=== PATIENT | female | born 1975 | race Hispanic/Latino ===

== ENCOUNTER 2020-10-03 13:48 | Observation (INO) | payer BC, OTHER ==
[~2020-10-03] VITALS: Ht 157.5 cm; Wt 78.9 kg
[~2020-10-03 13:48] MED LIST: B-12; IRON INFUSION
[2020-10-03] MEDS ORDERED: ASPIRIN 81 MG CHEW TAB PO ONE (14:15)
[2020-10-03 14:35] LABS: BASOPHILS # (AUTO) 0.1 (0.0-0.1); BASOPHILS % 0.6 % (0.0-1.0); EOSINOPHILS # (AUTO) 0.2 (0.0-0.4); EOSINOPHILS % 2.9 % (0.0-6.0); HEMATOCRIT 39.2 % (34.2-44.1); HEMOGLOBIN 12.9 g/dL (12.0-16.0); LYMPHOCYTES # (AUTO) 1.8 (1.0-3.2); LYMPHOCYTES % 22.1 % (18.0-39.1); MEAN CORPUSCULAR HEMOGLOBIN 30.4 pg (28-32); MEAN CORPUSCULAR HGB CONC 32.9 g/dL (31-35); MEAN CORPUSCULAR VOLUME 92.5 fL (81-99); MONOCYTES # (AUTO) 0.7 (0.2-0.8); MONOCYTES % 9.1 % (4.4-11.3); NEUTROPHILS # (AUTO) 5.2 (2.1-6.9); PLATELET COUNT 260 x10e3/uL (140-360); RED BLOOD COUNT 4.24 x10e6/uL (3.6-5.1); RED CELL DISTRIBUTION WIDTH 13.6 % (11.7-14.4)
[2020-10-03 14:45] LABS: AMPHETAMINES SCREEN,URINE NEGATIVE (NEGATIVE); BENZODIAZEPINES SCREEN,URINE NEGATIVE (NEGATIVE); PHENCYCLIDINE SCREEN,URINE NEGATIVE (NEGATIVE)
[2020-10-03 14:50] LABS: INR 0.87; PROTHROMBIN TIME 12.3 seconds (11.9-14.5)
[2020-10-03 14:51] LABS: PARTIAL THROMBOPLASTIN TIME 29.7 seconds (23.8-35.5)
[2020-10-03 15:09] LABS: ALANINE AMINOTRANSFERASE 15 IU/L (0-55); ALBUMIN/GLOBULIN RATIO 1.2 (0.8-2.0); ALKALINE PHOSPHATASE 80 IU/L (40-150); ANION GAP 15.5 mmol/L (8-16); BLOOD UREA NITROGEN 11 mg/dL (7-26); BUN/CREATININE RATIO 17 (6-25); CALCIUM 9.1 mg/dL (8.4-10.2); CARBON DIOXIDE 24 mmol/L (22-29); CHLORIDE 107 mmol/L (98-107); CREATINE KINASE 84 IU/L (29-168); CREATININE, SERUM 0.65 mg/dL (0.57-1.11); EST GLOMERULAR FILTRATION RATE > 60 ML/MIN (60-); GLUCOSE 65 mg/dL (74-118); POTASSIUM 3.5 mmol/L (3.5-5.1); SODIUM 143 mmol/L (136-145)
[2020-10-03 15:54] LABS: THYROID STIMULATING HORMONE 1.746 uIU/mL (0.350-4.940)
[2020-10-03] MEDS ORDERED: ONDANSETRON HCL INJ 2MG/ML 2ML 2 MG/ML VIAL IV PRN (16:30)
[2020-10-03] MEDS ORDERED: SODIUM CHLORIDE 0.9% 1000ML 1,000 ML IV SCH (16:30)
[2020-10-03] MEDS ORDERED: LORAZEPAM INJ 2 MG/ML VIAL IV NR (16:45)
[2020-10-03] MEDS ORDERED: ESTRADIOL1 MG PO (16:59)
[2020-10-03 19:28] VITALS: BP 117/79
[2020-10-03] MEDS ORDERED: LINZESS290 MCG PO (19:49)
[2020-10-03 20:00] VITALS: BP_SYST 108; BP_SYST 117; BP_DIAS 78; BP_DIAS 79
[2020-10-04] VITALS: BP 105/67
[2020-10-04 02:18] LABS: CREATINE KINASE 58 IU/L (29-168)
[2020-10-04 04:00] VITALS: BP 98/66
[2020-10-04 08:30] VITALS: BP 98/66
[2020-10-04] MEDS ORDERED: ASPIRIN 81 MG ENTERIC COATED PO SCH (09:00)
[2020-10-04 09:18] VITALS: BP 113/73
[2020-10-04 11:11] LABS: BASOPHILS # (AUTO) 0.1 (0.0-0.1); BASOPHILS % 0.8 % (0.0-1.0); EOSINOPHILS # (AUTO) 0.3 (0.0-0.4); HEMOGLOBIN 12.5 g/dL (12.0-16.0); LYMPHOCYTES # (AUTO) 1.6 (1.0-3.2); MEAN CORPUSCULAR HEMOGLOBIN 30.2 pg (28-32); MEAN CORPUSCULAR HGB CONC 32.1 g/dL (31-35); MEAN CORPUSCULAR VOLUME 94.2 fL (81-99); MONOCYTES # (AUTO) 0.6 (0.2-0.8); MONOCYTES % 9.7 % (4.4-11.3); NEUTROPHILS # (AUTO) 3.5 (2.1-6.9); NEUTROPHILS % 58.3 % (38.7-80.0); PLATELET COUNT 255 x10e3/uL (140-360); RED BLOOD COUNT 4.14 x10e6/uL (3.6-5.1); RED CELL DISTRIBUTION WIDTH 13.7 % (11.7-14.4)
[2020-10-04 11:34] LABS: ALANINE AMINOTRANSFERASE 16 IU/L (0-55); ALBUMIN 3.7 g/dL (3.5-5.0); ALBUMIN/GLOBULIN RATIO 1.2 (0.8-2.0); ALKALINE PHOSPHATASE 74 IU/L (40-150); ANION GAP 11.5 mmol/L (8-16); BLOOD UREA NITROGEN 8 mg/dL (7-26); BUN/CREATININE RATIO 13 (6-25); CALCIUM 8.8 mg/dL (8.4-10.2); CARBON DIOXIDE 26 mmol/L (22-29); CHLORIDE 108 mmol/L (98-107); CREATININE, SERUM 0.61 mg/dL (0.57-1.11); EST GLOMERULAR FILTRATION RATE > 60 ML/MIN (60-); GLUCOSE 78 mg/dL (74-118); POTASSIUM 3.5 mmol/L (3.5-5.1); SODIUM 142 mmol/L (136-145)
[2020-10-04 11:50] LABS: CREATINE KINASE 63 IU/L (29-168)
[2020-10-04 11:54] VITALS: BP 129/76
[2020-10-04] MEDS ORDERED: ASPIRIN EC81 MG PO (14:40)
[2020-10-04] MEDS ORDERED: ESTRADIOL 1 MG TAB PO SCH (17:00)
[2020-10-05] MEDS ORDERED: LINACLOTIDE 145 MCG CAPSULE PO SCH (09:00)
== END 2020-10-04 15:25 | disposition home or self-care (01) ==
LOC: ER 13:57 → ERHOLD 16:25 → MED/SURG 18:20
PROVIDERS: ADMIT Internal Medicine; ATTEND Internal Medicine
DX: R20.2 Paresthesia of skin (principal); Z88.8 Allergy status to other drugs, medicaments and biological substances; Z86.19 Personal history of other infectious and parasitic diseases; Z98.84 Bariatric surgery status; Z80.8 Family history of malignant neoplasm of other organs or systems; Z83.3 Family history of diabetes mellitus; Z82.49 Family history of ischemic heart disease and other diseases of the circulatory system; Z78.0 Asymptomatic menopausal state; Z20.828 Contact with and (suspected) exposure to other viral communicable diseases
CPT/HCPCS: 36415 ×2; 70450; 70551; 80053 ×2; 80307; 82550 ×2; 82553 ×2; 83735; 84443; 84484 ×2; 85025 ×2; 85610; 85730; 93005; 93880; 99284; G0378 ×2; J2060; J7030; U0002

== ENCOUNTER → 2022-03-15 | Day surgery (SDC) | payer BC ==
[2022-03-14 10:48] LABS: BASOPHILS # (AUTO) 0.1 (0.0-0.1); BASOPHILS % 0.9 % (0.0-1.0); EOSINOPHILS # (AUTO) 0.3 (0.0-0.4); EOSINOPHILS % 4.4 % (0.0-6.0); HEMATOCRIT 42.3 % (34.2-44.1); LYMPHOCYTES # (AUTO) 1.7 (1.0-3.2); LYMPHOCYTES % 26.4 % (18.0-39.1); MEAN CORPUSCULAR HEMOGLOBIN 27.5 pg (28-32); MEAN CORPUSCULAR HGB CONC 30.7 g/dL (31-35); MEAN CORPUSCULAR VOLUME 89.4 fL (81-99); MONOCYTES # (AUTO) 0.5 (0.2-0.8); MONOCYTES % 7.6 % (4.4-11.3); NEUTROPHILS # (AUTO) 3.9 (2.1-6.9); NEUTROPHILS % 60.5 % (38.7-80.0); PLATELET COUNT 273 x10e3/uL (140-360); RED BLOOD COUNT 4.73 x10e6/uL (3.6-5.1)
[~2022-03-15] MED LIST changes: +ASPIRIN EC81 MG PO; +DYMISTA NASAL S23 GM INH; +ESTRADIOL1 MG PO; +FENTANYL CITRATE/PF 100MCG/2 ML INJ ONE; +LEVOCETIRIZINE D5 MG PO; +LINZESS290 MCG PO; +MIDAZOLAM HCL 2 MG/2 ML VIAL ONE; +PROPOFOL IV EMULSION 10 MG/ML 20 ML VIAL ONE; +VITAMIN B-121000 MC4 IM
[2022-03-15 11:20] VITALS: BP 109/72
== END | disposition home or self-care (01) ==
LOC: OR 09:15
PROVIDERS: ATTEND Internal Medicine Gastroenterology
DX: Z12.11 Encounter for screening for malignant neoplasm of colon (principal); K59.00 Constipation, unspecified; K58.9 Irritable bowel syndrome, unspecified; K64.8 Other hemorrhoids; G47.33 Obstructive sleep apnea (adult) (pediatric); D64.9 Anemia, unspecified; I49.3 Ventricular premature depolarization; J30.2 Other seasonal allergic rhinitis; I83.90 Asymptomatic varicose veins of unspecified lower extremity; Z88.6 Allergy status to analgesic agent; Z01.810 Encounter for preprocedural cardiovascular examination; Z01.812 Encounter for preprocedural laboratory examination; Z20.822 Contact with and (suspected) exposure to COVID-19; Z79.82 Long term (current) use of aspirin; Z68.34 Body mass index [BMI] 34.0-34.9, adult; Z86.73 Personal history of transient ischemic attack (TIA), and cerebral infarction without residual deficits; Z86.16 Personal history of COVID-19; Z87.19 Personal history of other diseases of the digestive system
CPT/HCPCS: 36415; 45378; 85025; 93005; J2250; J2704; J3010; U0002

== ENCOUNTER 2024-12-15 13:07 | Emergency (ER) | payer BC ==
[~2024-12-15] VITALS: Ht 157.5 cm; Wt 78.9 kg
[~2024-12-15 13:07] MED LIST changes: -FENTANYL CITRATE/PF 100MCG/2 ML INJ ONE; -MIDAZOLAM HCL 2 MG/2 ML VIAL ONE; -PROPOFOL IV EMULSION 10 MG/ML 20 ML VIAL ONE
[2024-12-15 13:17] VITALS: PULSE 88; RESP 17; TEMP 97.9; O2SAT 96
[2024-12-15] MEDS ORDERED: POLYMYXIN B-TMP10 ML OS (14:00)
== END 2024-12-15 14:49 | disposition home or self-care (01) ==
LOC: ER 13:28
DX: H57.12 Ocular pain, left eye (principal); H00.15 Chalazion left lower eyelid; R51.9 Headache, unspecified; Z98.84 Bariatric surgery status
CPT/HCPCS: 99282